=== PATIENT | female | born 1955 | race African-American/Black ===

== ENCOUNTER 2016-12-21 05:42 | Emergency (ER) | payer MEDICAID ==
[~2016-12-21] VITALS: Ht 165.1 cm; Wt 108.9 kg
[~2016-12-21 05:42] MED LIST: CLIN-77 PO; HYDR-1189 PO; VIT D
[2016-12-21 06:06] VITALS: BP_SYST 5
--- NOTE | 2016-12-21 06:20 | NUR ---
Pt awake alert oriented x 4. Clear speech. Pt stated a week ago she tried to reach over for to sweet pickle maker something in the truck and pt had severe pain. Denied any SOB at the time. No any actue distress noted. will conitnue to monitor
--- NOTE | 2016-12-21 06:24 | NUR ---
ER Dr. Haro at bedside examining patient.
[2016-12-21] MEDS ORDERED: HYDROcodone/ACETAMIN 5-325 MG TAB (NORCO/ VICODIN) PO ONE (07:45)
--- NOTE | 2016-12-21 08:02 | NUR ---
Patient given written and verbal discharge instructions and verbalizes understanding. ER MD discussed with patient the results and treatment provided. Given copies of tests performed in ER. Patient in stable condition. ID arm band removed. Rx of Tylenol #3 given. Patient educated on pain management and to follow up with PMD. Pain Scale 7/10, medicated with Hibernia prior to DC, pt would like to go home and relax. Opportunity for questions provided and answered.
[2016-12-21 08:03] VITALS: BP_SYST 121
== END 2016-12-21 08:03 | disposition home or self-care (01) ==
LOC: SED 05:42
DX: R07.89 Other chest pain (principal)
CPT/HCPCS: 71010; 71100; 99284

== ENCOUNTER 2017-10-29 05:47 | Emergency (ER) | payer MEDICAID ==
[~2017-10-29] VITALS: Ht 162.6 cm; Wt 88.0 kg
[2017-10-29 05:58] VITALS: BP_SYST 144
[2017-10-29] MEDS ORDERED: MULT PO (06:04)
[2017-10-29] MEDS ORDERED: FERR-57 PO (06:04)
[2017-10-29] MEDS ORDERED: KETOROLAC TROMETHAMINE 60 MG/2 ML VIAL IM ONE (06:15)
[2017-10-29 06:50] VITALS: BP_SYST 144
== END 2017-10-29 06:50 | disposition home or self-care (01) ==
LOC: SED 05:47
DX: S20.211A Contusion of right front wall of thorax, initial encounter (principal); X58.XXXA Exposure to other specified factors, initial encounter; Y93.89 Activity, other specified; Y92.89 Other specified places as the place of occurrence of the external cause; Y99.8 Other external cause status
CPT/HCPCS: 71045; 71100; 96372; 99284; J1885

== ENCOUNTER 2018-09-18 14:46 | Inpatient (IN) | payer OTHER, MEDICAID ==
[~2018-09-18] VITALS: Ht 162.6 cm; Wt 100.5 kg
[~2018-09-18 14:46] MED LIST changes: -CLIN-77 PO; +FERR-57 PO; -HYDR-1189 PO; +MULT PO; -VIT D
[2018-09-18 14:55] VITALS: BP_SYST 116
[2018-09-18] MEDS ORDERED: NACL 0.9% 1,000 ML IV ONE (15:28)
[2018-09-18] MEDS ORDERED: MORPHINE 4 MG/ML INJ. SYRINGE IVP ONE ×2 (15:30→17:15)
[2018-09-18] MEDS ORDERED: ONDANSETRON HCL 4 MG/2 ML VIAL IVP ONE (15:30)
[2018-09-18 15:48] LABS: HEMOGLOBIN 10.6 g/dL (12.0-16.0); MEAN CORPUSCULAR HEMOGLOBIN 28 pg (27-31); MEAN CORPUSCULAR HGB CONC 32 % (32-36); MEAN CORPUSCULAR VOLUME 88 fL (79.0-98.0); PLATELET COUNT (AUTO) 201 K/uL (130-430); RED BLOOD CELL COUNT(AUTO) 3.77 MIL/uL (4.2-6.2); RED CELL DISTRIBUTION WIDTH 14.4 % (9.0-15.0); WHITE BLOOD COUNT (AUTO) 3.6 K/uL (4.8-10.8)
[2018-09-18 16:04] LABS: CALCIUM 8.1 mg/dL (8.4-11.0); CREATININE 0.73 mg/dL (0.55-1.30)
[2018-09-18 16:07] LABS: INR 0.9 (0.8-1.2); PROTHROMBIN TIME 9.6 SECS (9.5-12.5)
[2018-09-18 16:09] LABS: TOTAL BILIRUBIN 0.3 mg/dL (0.0-1.0)
[2018-09-18 18:01] LABS: BAND % (MANUAL) 1 % (0-6); BASOPHILS % (MANUAL) 0 % (0-2); EOSINOPHILS % (MANUAL) 2 % (0-7); LYMPHOCYTES % (MANUAL) 35 % (20-46); MONOCYTES % (MANUAL) 9 % (0-11)
[2018-09-18] MEDS ORDERED: MORPHINE 4 MG/ML INJ. SYRINGE IVP PRN (19:15)
[2018-09-18 20:23] VITALS: BP_SYST 131
[2018-09-18] MEDS ORDERED: ZOLPIDEM TARTRATE 5 MG TABLET PO PRN (22:00)
[2018-09-18] MEDS: HYDROmorphone 2 MG/ML VIAL IVP PRN (22:27)
[2018-09-18] MEDS ORDERED: ENOXAPARIN SODIUM 40 MG/0.4 ML SYRINGE SUBCUT SCH (22:30)
[2018-09-19 00:42] VITALS: BP_SYST 113
[2018-09-19] MEDS: HYDROmorphone 2 MG/ML VIAL IVP PRN ×3 (02:43→12:46)
[2018-09-19 08:06] VITALS: BP_SYST 118
[2018-09-19 12:50] VITALS: BP_SYST 116
[2018-09-19 14:15] VITALS: BP_SYST 116
[2018-09-19 17:08] VITALS: BP_SYST 126
[2018-09-19] MEDS ORDERED: ENOXAPARIN SODIUM 40 MG/0.4 ML SYRINGE SUBCUT SCH (21:00)
== END 2018-09-19 16:50 | disposition short-term general hospital (02) | DRG 534 ==
LOC: SED 14:46 → SMU 19:03
PROVIDERS: ADMIT Internal Medicine; ATTEND Internal Medicine Hospice and Palliative Medicine
DX: S72.91XA Unspecified fracture of right femur, initial encounter for closed fracture (principal); W01.0XXA Fall on same level from slipping, tripping and stumbling without subsequent striking against object, initial encounter; Z96.652 Presence of left artificial knee joint; Z79.899 Other long term (current) drug therapy; Y93.89 Activity, other specified; Y92.89 Other specified places as the place of occurrence of the external cause; Y99.8 Other external cause status
CPT/HCPCS: 36415; 71045; 73552; 73560-TC; 80053; 82150-TC; 82550-TC; 83690-TC; 84484; 85007; 85027; 85610-TC; 85730-TC; 93005; 96361; 96374; 96375; 96376; 99285; J1170; J1650; J2270; J2405; J7030

== ENCOUNTER 2019-07-25 06:59 | Inpatient (IN) | payer BC, MEDICAID, OTHER ==
[~2019-07-25] VITALS: Ht 165.1 cm; Wt 95.3 kg
[2019-07-25 07:10] VITALS: BP_SYST 119
[2019-07-25 08:27] LABS: BASOPHILS % (AUTO) 0.6 % (0.0-2.0); EOSINOPHILS # (AUTO) 0.5 K/uL (0.0-0.4); EOSINOPHILS % (AUTO) 7.8 % (0.0-4.0); LYMPHOCYTES # (AUTO) 1.3 K/uL (1.0-5.5); LYMPHOCYTES % (AUTO) 21.1 % (20.5-51.5); MEAN CORPUSCULAR HEMOGLOBIN 31 pg (27-31); MEAN CORPUSCULAR HGB CONC 33 % (32-36); MEAN CORPUSCULAR VOLUME 95 fL (79.0-98.0); MONOCYTES # (AUTO) 0.7 K/uL (0.0-1.0); MONOCYTES % (AUTO) 11.5 % (1.7-9.3); NEUTROPHILS # (AUTO) 3.6 K/uL (1.8-7.7); PLATELET COUNT (AUTO) 149 K/uL (130-430); RED BLOOD CELL COUNT(AUTO) 2.15 MIL/uL (4.2-6.2); RED CELL DISTRIBUTION WIDTH 14.7 % (9.0-15.0); WHITE BLOOD COUNT (AUTO) 6.1 K/uL (4.8-10.8)
[2019-07-25 08:35] LABS: HEMATOCRIT 20.5 % (36-48)
[2019-07-25 08:38] LABS: CALCIUM 7.5 mg/dL (8.4-11.0); CREATININE 0.64 mg/dL (0.55-1.30); POTASSIUM 3.5 mmol/L (3.5-5.1)
[2019-07-25 08:43] LABS: ALBUMIN 2.8 g/dL (3.4-4.8); TOTAL BILIRUBIN 0.8 mg/dL (0.0-1.0)
[2019-07-25 08:57] LABS: INR 0.9 (0.8-1.2); PROTHROMBIN TIME 9.3 SECS (9.5-12.5)
[2019-07-25] MEDS ORDERED: SULFAMETHOXAZOLE/TRIMETHOPR DS 1 TABLET PO ONE (10:30)
[2019-07-25] MEDS ORDERED: CEPHALEXIN 500 MG CAPSULE PO ONE (10:30)
[2019-07-25] MEDS ORDERED: LIDOCAINE/EPI 2% 1:100000 20 ML VIAL INJ ONE (10:30)
[2019-07-25 12:25] VITALS: BP_SYST 124
[2019-07-25 14:45] VITALS: BP_SYST 106
[2019-07-25 18:08] VITALS: BP_SYST 120
[2019-07-25] MEDS ORDERED: ONDANSETRON HCL 4 MG/2 ML VIAL IVP PRN (18:30)
[2019-07-25] MEDS ORDERED: ACETAMINOPHEN 325 MG TABLET PO PRN (18:30)
[2019-07-25] MEDS ORDERED: LORazepam 2 MG/ML VIAL IVP PRN (18:30)
[2019-07-25] MEDS ORDERED: HYDROcodone/ACETAMIN 5-325 MG TAB (NORCO/ VICODIN) PO PRN (18:30)
[2019-07-25 19:00] VITALS: BP_SYST 104
[2019-07-25 20:00] VITALS: BP_SYST 104
[2019-07-25] MEDS: HYDROcodone/ACETAMIN 10-325 MG TAB PO PRN (20:11)
[2019-07-25] MEDS: FERROUS SULFATE 325 MG TABLET.DR PO SCH (20:28)
[2019-07-25] MEDS: NORMAL SALINE 5 ML DISP.SYRIN IVF SCH ×2 (20:30)
[2019-07-26 00:34] VITALS: BP_SYST 132
[2019-07-26 00:38] VITALS: BP_SYST 96
[2019-07-26] MEDS: HYDROcodone/ACETAMIN 10-325 MG TAB PO PRN ×3 (05:47→20:45)
[2019-07-26] MEDS: NORMAL SALINE 5 ML DISP.SYRIN IVF SCH ×6 (05:54→20:45)
[2019-07-26 07:54] LABS: BASOPHILS % (AUTO) 0.3 % (0.0-2.0); EOSINOPHILS # (AUTO) 0.4 K/uL (0.0-0.4); HEMATOCRIT 22.6 % (36-48); HEMOGLOBIN 7.5 g/dL (12.0-16.0); LYMPHOCYTES # (AUTO) 0.8 K/uL (1.0-5.5); LYMPHOCYTES % (AUTO) 14.2 % (20.5-51.5); MEAN CORPUSCULAR HEMOGLOBIN 31 pg (27-31); MEAN CORPUSCULAR HGB CONC 33 % (32-36); MEAN CORPUSCULAR VOLUME 93 fL (79.0-98.0); MONOCYTES # (AUTO) 0.7 K/uL (0.0-1.0); MONOCYTES % (AUTO) 11.2 % (1.7-9.3); NEUTROPHILS # (AUTO) 3.9 K/uL (1.8-7.7); NEUTROPHILS % (AUTO) 67.3 % (40.0-70.0); PLATELET COUNT (AUTO) 148 K/uL (130-430); RED BLOOD CELL COUNT(AUTO) 2.42 MIL/uL (4.2-6.2); RED CELL DISTRIBUTION WIDTH 14.3 % (9.0-15.0); WHITE BLOOD COUNT (AUTO) 5.9 K/uL (4.8-10.8)
[2019-07-26 08:00] VITALS: BP_SYST 102
[2019-07-26 08:20] LABS: CALCIUM 7.4 mg/dL (8.4-11.0); CREATININE 0.63 mg/dL (0.55-1.30); POTASSIUM 4.1 mmol/L (3.5-5.1)
[2019-07-26] MEDS: MULTIVITAMINS TAB 1 TABLET PO SCH (08:47)
[2019-07-26] MEDS: FERROUS SULFATE 325 MG TABLET.DR PO SCH ×2 (08:47→20:44)
[2019-07-26 12:00] VITALS: BP_SYST 118
[2019-07-26 16:00] VITALS: BP_SYST 105
[2019-07-27 00:15] VITALS: BP_SYST 92
[2019-07-27] MEDS: HYDROcodone/ACETAMIN 10-325 MG TAB PO PRN ×3 (01:33→10:03)
[2019-07-27 05:58] LABS: BASOPHILS % (AUTO) 0.3 % (0.0-2.0); EOSINOPHILS # (AUTO) 0.5 K/uL (0.0-0.4); EOSINOPHILS % (AUTO) 8.2 % (0.0-4.0); HEMOGLOBIN 7.4 g/dL (12.0-16.0); LYMPHOCYTES # (AUTO) 1.2 K/uL (1.0-5.5); LYMPHOCYTES % (AUTO) 19.1 % (20.5-51.5); MEAN CORPUSCULAR HEMOGLOBIN 32 pg (27-31); MEAN CORPUSCULAR HGB CONC 34 % (32-36); MEAN CORPUSCULAR VOLUME 94 fL (79.0-98.0); MONOCYTES # (AUTO) 0.8 K/uL (0.0-1.0); MONOCYTES % (AUTO) 13.5 % (1.7-9.3); NEUTROPHILS # (AUTO) 3.7 K/uL (1.8-7.7); NEUTROPHILS % (AUTO) 58.9 % (40.0-70.0); PLATELET COUNT (AUTO) 171 K/uL (130-430); RED BLOOD CELL COUNT(AUTO) 2.32 MIL/uL (4.2-6.2); RED CELL DISTRIBUTION WIDTH 14.5 % (9.0-15.0); WHITE BLOOD COUNT (AUTO) 6.3 K/uL (4.8-10.8)
[2019-07-27] MEDS: NORMAL SALINE 5 ML DISP.SYRIN IVF SCH ×2 (06:00→06:06)
[2019-07-27] MEDS ORDERED: FLU VACC QS2019-20 36MOS UP/PF 60 MCG/0.5 ML SYRINGE I.M. PRN (06:10)
[2019-07-27 07:11] LABS: CALCIUM 7.4 mg/dL (8.4-11.0); CREATININE 0.58 mg/dL (0.55-1.30); POTASSIUM 4.5 mmol/L (3.5-5.1)
[2019-07-27 07:19] LABS: HEMATOCRIT 21.9 % (36-48)
[2019-07-27] MEDS: MULTIVITAMINS TAB 1 TABLET PO SCH (09:56)
[2019-07-27] MEDS: FERROUS SULFATE 325 MG TABLET.DR PO SCH (09:58)
[2019-07-27 12:00] VITALS: BP_SYST 90
[2019-07-27 12:56] VITALS: BP_SYST 98
[2019-07-27 13:19] VITALS: BP_SYST 98
[2019-07-28 12:46] LABS: HEMOGLOBIN 6.7 g/dL (12.0-16.0)
== END 2019-07-27 14:25 | disposition home or self-care (01) | DRG 810 ==
LOC: SED 06:59 → SMU 09:54
PROVIDERS: ADMIT Preventive Medicine Preventive Medicine/Occupational Environmental Medicine; ATTEND Preventive Medicine Preventive Medicine/Occupational Environmental Medicine
PROC: 0HQJXZZ Repair Left Upper Leg Skin, External Approach (ICD-10-PCS; principal; 2019-07-25)
PROC: 0HQJXZZ Repair Left Upper Leg Skin, External Approach (ICD-10-PCS; 2019-07-25)
PROC: 30233N1 Transfusion of Nonautologous Red Blood Cells into Peripheral Vein, Percutaneous Approach (ICD-10-PCS; 2019-07-25)
DX: L76.22 Postprocedural hemorrhage of skin and subcutaneous tissue following other procedure (principal); E44.0 Moderate protein-calorie malnutrition; S71.112A Laceration without foreign body, left thigh, initial encounter; D64.9 Anemia, unspecified; X58.XXXA Exposure to other specified factors, initial encounter; Y83.8 Other surgical procedures as the cause of abnormal reaction of the patient, or of later complication, without mention of misadventure at the time of the procedure; Y93.89 Activity, other specified; Y92.89 Other specified places as the place of occurrence of the external cause; Y99.8 Other external cause status; Z98.84 Bariatric surgery status; D62 Acute posthemorrhagic anemia
CPT/HCPCS: 36415; 80048; 80053; 85025; 85610-TC; 85730-TC; 86886; 86900; 86901; 86920; 96372; 99285; J2060; J7030; J7050; P9021

== ENCOUNTER 2022-07-28 05:03 | Emergency (ER) | payer OTHER, BC ==
[~2022-07-28] VITALS: Ht 165.1 cm; Wt 88.0 kg
[~2022-07-28 05:03] MED LIST changes: +CEPH250C PO
[2022-07-28 05:30] VITALS: BP_SYST 132
[2022-07-28] MEDS ORDERED: MORPHINE 4 MG INJ. 4 MG/ML VIAL IVP ONE (06:15)
[2022-07-28 07:02] LABS: BASOPHILS % (AUTO) 1.1 % (0.0-2.0); EOSINOPHILS # (AUTO) 0.4 K/uL (0.0-0.4); EOSINOPHILS % (AUTO) 9.1 % (0.0-4.0); HEMATOCRIT 33.7 % (36-48); HEMOGLOBIN 11.1 g/dL (12.0-16.0); LYMPHOCYTES # (AUTO) 1.1 K/uL (1.0-5.5); LYMPHOCYTES % (AUTO) 27.8 % (20.5-51.5); MEAN CORPUSCULAR HEMOGLOBIN 30 pg (27-31); MEAN CORPUSCULAR HGB CONC 33 % (32-36); MEAN CORPUSCULAR VOLUME 90 fL (79.0-98.0); MONOCYTES # (AUTO) 0.5 K/uL (0.0-1.0); MONOCYTES % (AUTO) 12.9 % (1.7-9.3); NEUTROPHILS # (AUTO) 1.9 K/uL (1.8-7.7); NEUTROPHILS % (AUTO) 49.1 % (40.0-70.0); PLATELET COUNT (AUTO) 191 K/uL (130-430); RED BLOOD CELL COUNT(AUTO) 3.74 MIL/uL (4.2-6.2); RED CELL DISTRIBUTION WIDTH 14.3 % (9.0-15.0); WHITE BLOOD COUNT (AUTO) 3.9 K/uL (4.8-10.8)
[2022-07-28 07:10] LABS: CALCIUM 8.6 mg/dL (8.4-11.0); CREATININE 0.59 mg/dL (0.55-1.30)
[2022-07-28 07:16] LABS: ALBUMIN 3.3 g/dL (3.4-4.8); TOTAL BILIRUBIN 0.2 mg/dL (0.0-1.0)
[2022-07-28] MEDS ORDERED: LIDOCAINE 1% 10 MG/ML, 20 ML MDV INJ ONE (10:30)
[2022-07-28] MEDS ORDERED: HYDROmorphone 1 MG/ML INJ. CARTRIDGE IVP ONE (13:00)
[2022-07-28] MEDS ORDERED: SULF1TAB48 PO (14:02)
[2022-07-28 14:21] VITALS: BP_SYST 127
== END 2022-07-28 14:20 | disposition home or self-care (01) ==
LOC: SED 05:03
DX: L76.34 Postprocedural seroma of skin and subcutaneous tissue following other procedure (principal); E11.9 Type 2 diabetes mellitus without complications; I10 Essential (primary) hypertension; Z79.899 Other long term (current) drug therapy; Z20.822 Contact with and (suspected) exposure to COVID-19
CPT/HCPCS: 99285; 74177; 96374; 96375; 87426; 80053; 85025; 87070; 87075; 36415; 76376; J2001; J1170; J2270; Q9967